=== PATIENT | female | born 2000 | race Caucasian/White ===

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

== ENCOUNTER 2018-06-14 12:25 | Emergency (ER) | payer MEDICAID | END 2018-06-14 14:46 | disposition home or self-care (01) | LOC: C.ER 12:25 ==